=== PATIENT | male | born 1950 | race Caucasian/White ===

== ENCOUNTER 2022-06-22 15:56 | Outpatient (CLI) | payer MEDICARE ==
--- NOTE | 2022-06-22 17:10 | XRAY Report ---
PROCEDURE: Toe(s) LT INDICATIONS: SWELLING OF FIRST METATARSAL JOINT OF HALLUX LT FT TECHNIQUE: 3 views of the first toe(s) acquired. COMPARISON: None FINDINGS: Bones: No fractures or dislocations. No suspicious bony lesions. MTP joint space narrowing with as sociated osteophytosis. No erosions. Soft tissues: No suspicious soft tissue densities. IMPRESSION: Moderate MTP osteoarthritis. Reviewed by: Luis Alberto James on 06/22/2022 5:09 PM PST Approved by: Luis Alberto James on 06/22/2022 5:09 PM PST Station ID: [id number]
== END 2022-06-22 15:57 | disposition home or self-care (01) ==
LOC: DI.S 15:56
PROVIDERS: ATTEND Physician Assistant
DX: M19.072 Primary osteoarthritis, left ankle and foot (principal)
CPT/HCPCS: 73660